=== PATIENT | male | born 1995 | race Two or more races ===

== ENCOUNTER 2020-11-08 14:27 | Emergency (ER) | payer OTHER ==
[~2020-11-08] VITALS: Ht 177.8 cm; Wt 73.9 kg
== END 2020-11-08 17:39 | disposition home or self-care (01) ==
LOC: ER 14:27
DX: S96.811A Strain of other specified muscles and tendons at ankle and foot level, right foot, initial encounter (principal); X50.0XXA Overexertion from strenuous movement or load, initial encounter; Y93.89 Activity, other specified; Y92.832 Beach as the place of occurrence of the external cause; Y99.8 Other external cause status